=== PATIENT | female | born 1965 | race Caucasian/White ===

== ENCOUNTER 2023-04-22 10:16 | Outpatient (AMB) | payer OTHER, SELFPAY ==
--- NOTE | 2023-04-22 10:13 | MHC.OFFVIS ---
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 she has about a 10 minute retention,she was diagnosed back in November by Dr. Munguia Allergies No Known Allergies Allergy (Verified 04/22/23 10:14) Medication List - Last Reconciled 04/22/23 by Lima Soto MD donepezil 10 mg PO DAILY HPI HPI Comments History of Present Illness Details 57y/o female with cognitive impairment comes for further management.ABout 3 years ago she noticed difficulty at work. she worked at [employer] and had difficulty with short term recall. 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 Reno and later by Dr. Munguia who did initial evaluation and started her on donepezil. she is also in a clinical trial at [facility] and had neuropsych evaluation. Her reports that she forgets conversations, misplaces things, repeats questions , confusion with people etc.and has been gradually worsening. she denies any depression , can become anxious . she sleeps good but has loud snoring. 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 Her mother has cognitive issues , maternal uncle and grand mother were diagnosed with ALzheimers. FORMERLY [facility], 1928–1983 Medical History (Updated 04/22/23 @ 13:22 by Lima Soto MD) Basal cell carcinoma Dementia Hypersomnia Snoring Family History Mother Dementia Maternal Grandmother Alzheimer's dementia Social History Alcohol intake: current Patient Tobacco Use Status: Never used Tobacco Review of Systems Const Reports as per HPI Eyes Reports as per HPI Card Reports no additional complaints Resp Reports no additional complaints Skin/Breast Reports system reviewed and no additional complaints, except as documented Physical Exam Vital Signs: Last Vital Signs Pulse 60 04/22/23 10:16 BP 110/78 04/22/23 10:16 Pulse Ox 98 04/22/23 10:16 Oxygen Delivery Method Room Air 07/10/23 10:16 Const General: cooperative, healthy appearing, comfortable, no acute distress and well developed Nutritional Appearance: average body habitus and well nourished Limitations: no limitations Eyes Pupils: Equal, round and reactive pupils present Neuro General: gait normal, tone normal, moves all extremities and no focal motor deficits Cranial nerves: Yes Facial sensation intact/muscles of mastication intact, Yes Equal, round and reactive pupils present, Yes Bilaterally intact EOM present, Yes Nystagmus not present, Yes Normal facial strength present, Yes Midline tongue present and Yes Symmetric palate elevation present Cognition (Neuro): abnormal cognition Gait exam (Neuro): Normal gait present Motor exam (neuro): 5/5 motor strength present throughout and Normal motor muscle tone present throughout Deep tendon reflexes (DTR's): Right triceps reflex intensity grade: 2+, Left triceps reflex intensity grade: 2+, Rt Biceps (C5, C6): 2+, Left biceps reflex intensity grade: 2+, Right brachioradialis reflex intensity grade: 2+, Left brachioradialis reflex intensity grade: 2+, Right patellar reflex intensity grade: 2+ and Left patellar reflex intensity grade: 2+ Coordination: [id number] test normal Orientation What is the (year) (season) (date) (day) (month)?: year and month Where are we (state) (county) (town or city) (hospital) (floor)?: state, county, town or city and hospital/clinic Registration Name of 3 unrelated objects clearly and slowly, then ask patient to repeat all 3 of them. (1st repeat determines score. Make sure they can repeat all three): object 1, object 2 and object 3 Attention & Calculation (CHOOSE ONE) Spell WORLD backwards (DLROW): 5 letters Recall Ask patient to repeat the 3 items from question #3.: object 1 Language Show patient a wristwatch & ask what it is. Repeat for pencil.: watch and pencil Ask the patient to repeat the phrase 'No ifs, ands, or buts' after you.: correct Ask the patient to 'take a piece of paper with their right hand' 'fold paper in half' 'place paper on floor': take paper in right hand, fold paper in half and place paper on floor Give patient a blank piece of paper & ask to write a sentence. Score if it contains a noun & verb.: sentence contains subject and verb Ask patient to copy figure of intersecting pentagons exactly. Score if all 10 angles & 2 intersects are included.: all 10 angles present & 2 are intersected Score Score: 23 Assessment & Plan Assessment & Plan (1) Dementia: Code(s): F03.90 - Unspecified dementia, unspecified severity, without behavioral disturbance, psychotic disturbance, mood disturbance, and anxiety (2) Snoring: Code(s): R06.83 - Snoring Plan Neuropsyhc evaluation reports from Dr. Munguia and [facility] Continue Donepezil 10mg qd I will trial her on namenda XR 7 mgqd and titrate upto 28mg qd Sleep study to r/o sleep apnea. Orders: Orders RT home sleep study Today G47.10 - Hypersomnia, unspecified, R06.83 - Snoring Medications: New memantine 7 mg PO DAILY 30 ea 0RF Coding Level of Care Code New Pt Level 4 (31937) Diagnoses Dementia F03.90 Snoring R06.83
[2023-04-22 10:16] VITALS: BP 110/78; PULSE 60; O2SAT 98
== END 2023-04-22 10:19 | disposition home or self-care (01) ==
LOC: HO.HSMS 10:16
PROVIDERS: PCP Nurse Practitioner Adult Health; Visit Provider Psychiatry & Neurology Neurology
DX: F03.90 Unspecified dementia, unspecified severity, without behavioral disturbance, psychotic disturbance, mood disturbance, and anxiety (principal); R06.83 Snoring; G47.10 Hypersomnia, unspecified
CPT/HCPCS: 99204

== ENCOUNTER → 2023-04-22 10:16 | Outpatient (BNVA) | payer OTHER, SELFPAY | PROVIDERS: PCP Nurse Practitioner Adult Health; Visit Provider Psychiatry & Neurology Neurology ==

== ENCOUNTER 2023-07-26 09:56 | Outpatient (AMB) | payer OTHER, SELFPAY ==
--- NOTE | 2023-07-26 09:58 | MHC.OFFVIS ---
Intake Vital Signs 07/26/23 10:06 Height 5 ft 2 in Weight 124 lb BMI 22.7 BP 122/76 Blood Pressure Location Rt brachial Position Sitting Respiration 15 Pulse 56 Pulse Source Pulse Oximeter Pulse Oximetry (%) 98 Oxygen Delivery Method Room Air Intake Visit Reasons: 3m follow up Memory Loss-confirmed Intake Note: Pt presents to the office for a 3 month follow up of memory loss. She is here with her and historian, Dionisio. He states she is the same . Her short term memory has a very small window though she occasionally surprises him by remembering an occurrence from a few hours prior. He also reports the polysomnogram was never performed and cancelled by the sleep study center due to missing information . He states she has no sleep disturbance, is able to fall and stay asleep, however, she snores loudly. He reports pt was recently diagnosed with V-Tach and she will be following up with a pulling unit floorhand soon. He is concerned her slow heart rate may require an adjustment to her Donepezil which he firmly believes she needs it. Her pulse rate ranges between 49-60 bpm. Allergies No Known Allergies Allergy (Verified 07/26/23 10:05) Medication List - Last Reconciled 07/26/23 by Lima Soto MD donepezil 10 mg PO DAILY memantine 28 mg PO DAILY HPI HPI Comments History of Present Illness Details 57y/o female with cognitive impairment comes for follow up. .ABout 3 years ago she noticed difficulty at work. she worked at [email or web address] and had difficulty with short term recall. 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 Reno and later by Dr. Munguia who did initial evaluation and started her on donepezil. she is also in a clinical trial at [facility] and had neuropsych evaluation. Her reports that she forgets conversations, misplaces things, repeats questions , confusion with people etc.and has been gradually worsening. she denies any depression , can become anxious . she sleeps good but has loud snoring. 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 Her mother has cognitive issues , maternal uncle and grand mother were diagnosed with ALzheimers. SLeep questionnaire- Loud snoring Hypersomnia 1-2 arousals No gasping arousals witnessed apneas memory issues during daytime [facility] Medical History (Updated 04/22/23 @ 13:22 by Lima Soto MD) Hypersomnia Snoring Dementia Basal cell carcinoma Family History Mother Dementia Maternal Grandmother Alzheimer's dementia Social History Alcohol intake: current Patient Tobacco Use Status: Never used Tobacco Physical Exam Vital Signs: Last Vital Signs Pulse 56 07/26/23 10:06 Resp 15 07/26/23 10:06 BP 122/76 07/26/23 10:06 Pulse Ox 98 07/26/23 10:06 Oxygen Delivery Method Room Air 07/26/23 10:06 BMI result Body Mass Index 22.7 Const General: cooperative, healthy appearing, comfortable, no acute distress and well developed Nutritional Appearance: average body habitus and well nourished Limitations: no limitations Eyes Pupils: Equal, round and reactive pupils present Neuro General: gait normal, tone normal, moves all extremities and no focal motor deficits Cranial nerves: Yes Facial sensation intact/muscles of mastication intact, Yes Equal, round and reactive pupils present, Yes Bilaterally intact EOM present, Yes Nystagmus not present, Yes Normal facial strength present, Yes Midline tongue present and Yes Symmetric palate elevation present Cognition (Neuro): abnormal cognition Gait exam (Neuro): Normal gait present Motor exam (neuro): 5/5 motor strength present throughout and Normal motor muscle tone present throughout Deep tendon reflexes (DTR's): Right triceps reflex intensity grade: 2+, Left triceps reflex intensity grade: 2+, Rt Biceps (C5, C6): 2+, Left biceps reflex intensity grade: 2+, Right brachioradialis reflex intensity grade: 2+, Left brachioradialis reflex intensity grade: 2+, Right patellar reflex intensity grade: 2+ and Left patellar reflex intensity grade: 2+ Coordination: [id number] test normal Orientation What is the (year) (season) (date) (day) (month)?: year, season, date, day and month Where are we (state) (county) (town or city) (hospital) (floor)?: state, county, town or city, hospital/clinic and floor Registration Name of 3 unrelated objects clearly and slowly, then ask patient to repeat all 3 of them. (1st repeat determines score. Make sure they can repeat all three): object 1, object 2 and object 3 Attention & Calculation (CHOOSE ONE) Spell WORLD backwards (DLROW): 4 letters Recall Ask patient to repeat the 3 items from question #3.: object 1 and object 2 Language Show patient a wristwatch & ask what it is. Repeat for pencil.: watch and pencil Ask the patient to repeat the phrase 'No ifs, ands, or buts' after you.: correct Ask the patient to 'take a piece of paper with their right hand' 'fold paper in half' 'place paper on floor': take paper in right hand, fold paper in half and place paper on floor Print the sentence 'CLOSE YOUR EYES' on a piece. If patient actually closes eyes then score.: followed written direction Give patient a blank piece of paper & ask to write a sentence. Score if it contains a noun & verb.: sentence contains subject and verb Ask patient to copy figure of intersecting pentagons exactly. Score if all 10 angles & 2 intersects are included.: all 10 angles present & 2 are intersected Score Score: 28 Assessment & Plan Assessment & Plan (1) Dementia: Code(s): F03.90 - Unspecified dementia, unspecified severity, without behavioral disturbance, psychotic disturbance, mood disturbance, and anxiety (2) Snoring: Code(s): R06.83 - Snoring Plan Neuropsyhc evaluation reports from Dr. Munguia and [facility] [place] [place] Continue Donepezil 10mg qd Namenda XR 28mg qd Sleep study to r/o sleep apnea. Orders: Referrals Neurology Referral F03.90 - Unspecified dementia, unspecified severity, without behavioral disturbance, psychotic disturbance, mood disturbance, and anxiety Coding Level of Care Code Est Pt Level 4 (31003) Diagnoses Dementia F03.90 Snoring R06.83
[2023-07-26 10:06] VITALS: BP 122/76; PULSE 56; RESP 15; O2SAT 98; BMI 22.7
== END 2023-07-26 10:33 | disposition home or self-care (01) ==
PROVIDERS: PCP Nurse Practitioner Adult Health; Visit Provider Psychiatry & Neurology Neurology
DX: F03.90 Unspecified dementia, unspecified severity, without behavioral disturbance, psychotic disturbance, mood disturbance, and anxiety (principal); R06.83 Snoring
CPT/HCPCS: 99214

== ENCOUNTER → 2023-07-26 09:56 | Outpatient (BNVA) | payer OTHER, SELFPAY | PROVIDERS: PCP Nurse Practitioner Adult Health; Visit Provider Psychiatry & Neurology Neurology ==

== ENCOUNTER → 2023-09-02 12:47 | Outpatient (REF) | payer OTHER, SELFPAY | LOC: HO.SL 12:47 | PROVIDERS: PCP Nurse Practitioner Adult Health; Visit Provider Psychiatry & Neurology Neurology | DX: G47.10 Hypersomnia, unspecified (principal); R06.83 Snoring | CPT/HCPCS: 95806 ==

== ENCOUNTER → 2023-09-02 13:21 | Outpatient (BNV) | payer OTHER, SELFPAY | PROVIDERS: PCP Nurse Practitioner Adult Health; Visit Provider Psychiatry & Neurology Neurology | DX: R06.83 Snoring (principal) | CPT/HCPCS: 95806 ==